=== PATIENT | female | born 1960 | race Caucasian/White ===

== ENCOUNTER 2016-11-16 17:51 | Emergency (ER) | payer BC, OTHER ==
--- NOTE | 2016-11-16 18:27 | ED ---
General Adult HPI - General Chief complaint: Head Injury Stated complaint: FALL, HEAD INJURY Time Seen by Provider: 11/16/16 18:00 Source: patient, family, RN notes reviewed Mode of arrival: wheelchair Limitations: physical limitation - History of Present Illness Initial comments: This is a 56-year-old female who was on some sort of 3 wheeled skateboard device. Patient fell backwards off of it landed on her buttocks and then smacked her head on the concrete. Patient states she was unconscious for a few seconds however has complete memory of today's events and is alert and oriented 3. Patient complains of occipital area headache and some mild neck pain. Patient denies any numbness weakness. Patient denies any blurred vision. Patient denies any back pain. Patient states her coccyx area is somewhat tender from landing so hard. Patient denies any chest pain difficult breathing shortest breath per patient denies any abdominal pain. Patient denies any sites of bleeding. Patient denies any extremity pain. - Related Data Home Medications Medication Instructions Recorded Confirmed Cyclobenzaprine [Flexeril] 10 mg PO BID PRN 11/16/16 11/16/16 Ibuprofen [Motrin] 800 mg PO BID PRN 11/16/16 11/16/16 PHENobarbital 60 mg PO BID 11/16/16 11/16/16 Phenytoin Sodium Extended 200 mg PO BID 11/16/16 11/16/16 [Dilantin] Zolpidem Tartrate [Ambien] 5 mg PO HS PRN 11/16/16 11/16/16 Allergies Allergy/AdvReac Type Severity Reaction Status Date / Time vancomycin Allergy Severe Anaphylaxis Verified 11/16/16 18:35 morphine AdvReac Severe Nausea & Verified 11/16/16 18:35 Vomiting Review of Systems ROS Statement: Those systems with pertinent positive or pertinent negative responses have been documented in the HPI. ROS Other: All systems not noted in ROS Statement are negative. Past Medical History Past Medical History: Seizure Disorder History of Any Multi-Drug Resistant Organisms: None Reported Date of last positivie culture/infection: YEARS AGO MDRO Source:: [facility] Past Surgical History: Orthopedic Surgery, Tubal Ligation Additional Past Surgical History / Comment(s): HAND, WRIST Past Psychological History: No Psychological Hx Reported Smoking Status: Never smoker Past Alcohol Use History: None Reported Past Drug Use History: None Reported General Exam - General Exam Comments Initial Comments: GENERAL: Patient is well-developed and well-nourished. Patient is nontoxic and well- hydrated and is in distress. ENT: Neck is soft and supple. No significant lymphadenopathy is noted. Oropharynx is clear. Moist mucous membranes. Patient has tenderness to both trapezius muscles. There is no spinous process tenderness. Patient's occipital region of the head is tender to palpation I see no abrasion or laceration. EYES: The sclera were anicteric and conjunctiva were pink and moist. Extraocular movements were intact and pupils were equal round and reactive to light. Eyelids were unremarkable. PULMONARY: Unlabored respirations. Good breath sounds bilaterally. No audible rales rhonchi or wheezing was noted. CARDIOVASCULAR: There is a regular rate and rhythm without any murmurs gallops or rubs. ABDOMEN: Soft and nontender with normal bowel sounds. No palpable organomegaly was noted. There is no palpable pulsatile mass. SKIN: Skin is clear with no lesions or rashes and otherwise unremarkable. NEUROLOGIC: Patient is alert and oriented x3. Cranial nerves II through XII are grossly intact. Motor and sensory are also intact. Normal speech, volume and content. Symmetrical smile. MUSCULOSKELETAL: Normal extremities with adequate strength and full range of motion. LYMPHATICS: No significant lymphadenopathy is noted PSYCHIATRIC: Normal psychiatric evaluation. Normal interpersonal interactions appears functionally intact in deals appropriately with others. No signs of depression. No signs of anxiety. Limitations: physical limitation Course Vital Signs 11/16/16 11/16/16 17:53 20:54 Temperature 98.4 F 97.9 F Pulse Rate 96 82 Respiratory 18 20 Rate Blood Pressure 168/80 187/81 O2 Sat by Pulse 99 100 Oximetry Medical Decision Making - Medical Decision Making I will back in the room to reevaluate the patient she was asymptomatic. She was alert and oriented 3. CT of the head and neck showed no acute abnormality. X-ray of the sacrum shows no acute normalities. Just prior to discharging the patient I reevaluated her she remained at her baseline according to family and she was alert and oriented 3. Disposition Clinical Impression: Concussion with loss of consciousness, Coccyx contusion Disposition: HOME SELF-CARE Instructions: Concussion (ED) Time of Disposition: 21:05
--- NOTE | 2016-11-16 19:22 | CT ---
EXAMINATION TYPE: CT brain cspine wo con DATE OF EXAM: 11/16/2016 7:10 PM COMPARISON: CT brain January 30, 2010 HISTORY: fall injury today with headache and neck pain CT DLP: 1620.7 mGycm. Automated Exposure Control for Dose Reduction was Utilized. TECHNIQUE: CT scan of the head and cervical spine are performed without contrast. FINDINGS: There is no acute intracranial hemorrhage, mass effect, or midline shift identified. The ventricles and sulci are within normal limits in size. The globes are intact and the visualized sin uses are clear. The calvarium is intact. Cervical spine is visualized in its entirety from C1 through upper thoracic levels and demonstrates s traightened alignment without evidence of acute fracture or dislocation. Prevertebral soft tissue ap pears within normal limits. The C1-C2 articulation is within normal limits on the coronal images. Vertebral body heights are maintained. There is mild spurring and disc space narrowing with vacuum di sc phenomenon at C5-C6 and C6-C7 levels. Review of axial images shows left-sided uncovertebral facet degenerative changes C2-C3 level. Thyroid gland is within normal limits. Lung apices are clear. IMPRESSION: 1. There is no acute fracture or dislocation evident in the cervical spine. 2. No acute intracranial hemorrhage, mass effect, or midline shift is seen.
--- NOTE | 2016-11-16 20:19 | XR ---
EXAMINATION TYPE: XR sacrum coccyx DATE OF EXAM: 11/16/2016 8:03 PM COMPARISON: NONE HISTORY: Fall injury with sacral and coccygeal pain. TECHNIQUE: 2 views of sacrum and coccyx are obtained. FINDINGS: There is no acute displaced sacral or coccygeal fracture identified. Sacroiliac joints are symmetric and maintained. Overlying pelvic phleboliths are seen. IMPRESSION: No acute displaced sacral or coccygeal fracture is seen.
[2016-11-16 20:56] VITALS: BP 187/81; PULSE 82; RESP 20; TEMP 97.9
== END 2016-11-16 21:31 | disposition home or self-care (01) ==
LOC: EC 17:51
DX: S06.0X9A Concussion with loss of consciousness of unspecified duration, initial encounter (principal); S30.0XXA Contusion of lower back and pelvis, initial encounter; G40.909 Epilepsy, unspecified, not intractable, without status epilepticus; Z79.899 Other long term (current) drug therapy; Z88.5 Allergy status to narcotic agent; Z88.1 Allergy status to other antibiotic agents; W01.10XA Fall on same level from slipping, tripping and stumbling with subsequent striking against unspecified object, initial encounter; Y93.51 Activity, roller skating (inline) and skateboarding
CPT/HCPCS: 70450; 72125; 72220; 99284

== ENCOUNTER 2018-03-26 20:00 | Emergency (ER) | payer OTHER ==
--- NOTE | 2018-03-26 21:29 | XR ---
EXAMINATION TYPE: XR Hip LT and AP Pelvis DATE OF EXAM: 03/26/2018 COMPARISON: NONE HISTORY: Pelvic and left hip pain after fall injury yesterday. TECHNIQUE: A single AP view of the pelvis is obtained. Two views of the left hip are obtained. FINDINGS: There is no acute fracture/dislocation evident in the pelvis. The sacroiliac joints appea r symmetric and unremarkable. [id number] axial joint space loss with mild acetabular spurring o f both hips is present. Left-sided pelvic phleboliths are noted. The symphysis is intact. Two views of left hip show no acute fracture or dislocation. No focal lytic or sclerotic lesion seen in the proximal left femur. The overlying soft tissue is unremarkable. IMPRESSION: There is no acute fracture or dislocation in the pelvis or left hip.
[2018-03-26] MEDS ORDERED: Acetaminophen-Codeine 300-30mg TAB PO STA (22:08)
--- NOTE | 2018-03-26 22:08 | ED ---
General Adult HPI - General Chief complaint: Extremity Injury, Lower Stated complaint: Hip pain Time Seen by Provider: 03/26/18 20:27 Source: patient, family Mode of arrival: ambulatory Limitations: no limitations - History of Present Illness Initial comments: Chief complaint and history of present illness this is a 58-year-old female here with her . Patient reports she [place] the [place]. Injuring her left hip left buttock area. No other injuries. No head or neck injury. No loss of consciousness. Patient reports she been walking without much difficulty since yesterday the later on today the discomfort increased. No complaint of numbness tingling or difficulty urinating. - Related Data Home Medications Medication Instructions Recorded Confirmed Cyclobenzaprine [Flexeril] 10 mg PO BID PRN 11/16/16 11/16/16 Ibuprofen [Motrin] 800 mg PO BID PRN 11/16/16 11/16/16 PHENobarbital 60 mg PO BID 11/16/16 11/16/16 Phenytoin Sodium Extended 200 mg PO BID 11/16/16 11/16/16 [Dilantin] Zolpidem Tartrate [Ambien] 5 mg PO HS PRN 11/16/16 11/16/16 Previous Rx's Medication Instructions Recorded Acetaminophen-Codeine 300-30mg 1 tab PO Q6H PRN #12 tablet 03/26/18 [Tylenol #3] Methocarbamol [Robaxin-750] 750 mg PO TID #9 tablet 03/26/18 Allergies Allergy/AdvReac Type Severity Reaction Status Date / Time vancomycin Allergy Severe Anaphylaxis Verified 03/26/18 20:08 morphine AdvReac Severe Nausea & Verified 03/26/18 20:08 Vomiting Review of Systems ROS Statement: Those systems with pertinent positive or pertinent negative responses have been documented in the HPI. Review of systems no other acute problems to complain of. Her past history includes having a seizure disorder since eighth grade still taking anti-seizure medications. She's had a tubal ligation, she's had orthopedic surgery on her hand and wrist. Family history significant for father recently diagnosed colon cancer. Patient denies smoking denies drinking. She reports ALLERGIES to morphine and vancomycin. ROS Other: All systems not noted in ROS Statement are negative. Past Medical History Past Medical History: Seizure Disorder History of Any Multi-Drug Resistant Organisms: None Reported Date of last positivie culture/infection: YEARS AGO MDRO Source:: [facility] Past Surgical History: Orthopedic Surgery, Tubal Ligation Additional Past Surgical History / Comment(s): HAND, WRIST Past Psychological History: No Psychological Hx Reported Smoking Status: Never smoker Past Alcohol Use History: None Reported Past Drug Use History: None Reported General Exam - General Exam Comments Initial Comments: Physical exam; vital signs temp 98.5 pulse 108 respiratory rate 20 pulse ox 94% room air blood pressure 150/86. Pertinent to the patient's visit examination finds the patient complaining of pain from the left buttock to the left hip area. Range of motion decreased secondary to pain. Neurovascular status was intact. No significant bruising appreciated. No complaint of numbness tingling or any difficulty urinating or bowel movements. Limitations: no limitations Course Vital Signs 03/26/18 03/26/18 20:02 21:42 Temperature 98.5 F Pulse Rate 108 H 84 Respiratory 20 18 Rate Blood Pressure 150/86 145/84 O2 Sat by Pulse 94 L 97 Oximetry Medical Decision Making - Medical Decision Making Gen. medical problem and medical decision making; this is a 58-year-old female here with her significant other. The patient reports that she stumbled and tripped while at the mall yesterday and landed on her left hip area. Since then the pain has become worse. She has ambulated since then. No other complaints to the rest the body. X-ray of the pelvis and left hip was done and reviewed by radiologist his findings are there is no acute fracture dislocation evident in the pelvis. The sacroiliac joints appear symmetric and unremarkable. Mild to moderate axial joint space loss with mild acetabular spurring of both hips is present. Left- sided pelvic phleboliths are noted. The symphysis intact. 2 views of the left hip shows no acute fracture dislocation. No focal lytic or sclerotic lesion is seen in the proximal left femur. The overlying soft tissues unremarkable. Impression; there is no acute fracture or dislocation in the pelvis or left hip. As read by Dr. braun The patient be placed on Robaxin 750 for muscle relaxation and 3 days of Tylenol 3 for pain. Disposition Clinical Impression: Contusion of left hip, initial encounter Disposition: HOME SELF-CARE Condition: Fair Instructions: Hip Pain (ED), Hip Contusion (ED) Prescriptions: Acetaminophen-Codeine 300-30mg [Tylenol #3] 1 tab PO Q6H PRN #12 tablet PRN Reason: Pain Methocarbamol [Robaxin-750] 750 mg PO TID #9 tablet Is patient prescribed a controlled substance at d/c from ED?: Yes When asked, does pt state using other controlled substances?: No If prescribed controlled substance>3 days was MAPS reviewed?: Prescribed <3 Days If Rx opioid, was Start Talking consent form obtained?: Yes Referrals: Alondra Bergeron MD [Primary Care Provider] - 1-2 days
[2018-03-26] MEDS ORDERED: METHOCARBAMOL 750 MG TAB PO PRN (22:09)
[2018-03-26 22:30] VITALS: BP 135/56; PULSE 75; RESP 20; TEMP 98.6
== END 2018-03-26 22:25 | disposition home or self-care (01) ==
LOC: EC 20:00
DX: S70.02XA Contusion of left hip, initial encounter (principal); G40.909 Epilepsy, unspecified, not intractable, without status epilepticus; Z79.899 Other long term (current) drug therapy; Z88.1 Allergy status to other antibiotic agents; Z88.5 Allergy status to narcotic agent; W01.0XXA Fall on same level from slipping, tripping and stumbling without subsequent striking against object, initial encounter; Y92.59 Other trade areas as the place of occurrence of the external cause
CPT/HCPCS: 73502; 99283

== ENCOUNTER 2020-10-14 17:05 | Emergency (ER) | payer OTHER ==
[2020-10-14 17:11] VITALS: RESP 18
[2020-10-14] MEDS ORDERED: ACETAMINOPHEN TAB 500 MG TAB PO STA (19:20)
[2020-10-14] MEDS ORDERED: IBUPROFEN 600 MG TAB PO STA (19:21)
[2020-10-14] MEDS ORDERED: SODIUM CHLORIDE 0.9% 1,000 ML IV ONE (19:22)
--- NOTE | 2020-10-14 19:24 | ED ---
General Adult HPI - General Source: patient, RN notes reviewed, old records reviewed Mode of arrival: wheelchair Limitations: no limitations <Curtis Britt - Last Filed: 10/14/20 21:04> <Ariel Manrique - Last Filed: 10/14/20 22:01> - General Chief complaint: Fever Stated complaint: fever/body aches/nausea Time Seen by Provider: 10/14/20 17:10 - History of Present Illness Initial comments: This is a 60-year-old female who presents emergency department stating that she's had significant exposure to cold. Patient also states she has high blood pressure. Patient comes in stating she's had body aches for 2 days now has a dry cough and is a some slight nausea but no vomiting. Patient denies any diarrhea. Patient denies loss of smell or taste. Patient states she has no chest pain or palpitations. Patient denies shortness of breath or difficulty breathing. Patient denies headache patient denies numbness weakness. Patient denies any recent injury or trauma. (Curtis Britt) - Related Data Home Medications Medication Instructions Recorded Confirmed Cyclobenzaprine [Flexeril] 10 mg PO BID PRN 11/16/16 11/16/16 Ibuprofen [Motrin] 800 mg PO BID PRN 11/16/16 11/16/16 PHENobarbital 60 mg PO BID 11/16/16 11/16/16 Phenytoin Sodium Extended 200 mg PO BID 11/16/16 11/16/16 [Dilantin] Zolpidem Tartrate [Ambien] 5 mg PO HS PRN 11/16/16 11/16/16 Previous Rx's Medication Instructions Recorded Acetaminophen-Codeine 300-30mg 1 tab PO Q6H PRN #12 tablet 03/26/18 [Tylenol #3] Methocarbamol [Robaxin-750] 750 mg PO TID #9 tablet 03/26/18 Allergies Allergy/AdvReac Type Severity Reaction Status Date / Time vancomycin Allergy Severe Anaphylaxis Verified 10/14/20 17:11 morphine AdvReac Severe Nausea & Verified 10/14/20 17:11 Vomiting Review of Systems ROS Other: All systems not noted in ROS Statement are negative. <Curtis Britt - Last Filed: 10/14/20 21:04> ROS Other: All systems not noted in ROS Statement are negative. <Ariel Manrique - Last Filed: 10/14/20 22:01> ROS Statement: Those systems with pertinent positive or pertinent negative responses have been documented in the HPI. Past Medical History Past Medical History: Seizure Disorder History of Any Multi-Drug Resistant Organisms: None Reported Date of last positivie culture/infection: YEARS AGO MDRO Source:: [facility] Past Surgical History: Orthopedic Surgery, Tubal Ligation Additional Past Surgical History / Comment(s): HAND, WRIST Past Psychological History: No Psychological Hx Reported Smoking Status: Never smoker Past Alcohol Use History: None Reported Past Drug Use History: None Reported <Curtis Britt - Last Filed: 10/14/20 21:04> General Exam Limitations: no limitations <Curtis Britt - Last Filed: 10/14/20 21:04> - General Exam Comments Initial Comments: GENERAL: Patient is well-developed and well-nourished. Patient is nontoxic and well- hydrated and is in mild distress. ENT: Neck is soft and supple. No significant lymphadenopathy is noted. Oropharynx is clear. Moist mucous membranes. Neck has full range of motion without e liciting any pain. EYES: The sclera were anicteric and conjunctiva were pink and moist. Extraocular movements were intact and pupils were equal round and reactive to light. Eyelids were unremarkable. PULMONARY: Unlabored respirations. Good breath sounds bilaterally. No audible rales rhonchi or wheezing was noted. CARDIOVASCULAR: There is a regular rate and rhythm without any murmurs gallops or rubs. ABDOMEN: Soft and nontender with normal bowel sounds. SKIN: Skin is clear with no lesions or rashes and otherwise unremarkable. NEUROLOGIC: Patient is alert and oriented x3. Cranial nerves II through XII are grossly intact. Motor and sensory are also intact. Normal speech, volume and content. Symmetrical smile. MUSCULOSKELETAL: Normal extremities with adequate strength and full range of motion. No lower extremity swelling or edema. No calf tenderness. LYMPHATICS: No significant lymphadenopathy is noted PSYCHIATRIC: Normal psychiatric evaluation. (Curtis Britt) Course Vital Signs 10/14/20 10/14/20 10/14/20 17:09 20:00 21:37 Temperature 98.0 F 98.1 F Pulse Rate 86 89 77 Respiratory 18 18 18 Rate Blood Pressure 184/93 154/91 155/80 O2 Sat by Pulse 98 98 98 Oximetry EKG Findings - EKG Comments: EKG Findings:: EKG: Normal sinus rhythm, rate of 84, OH interval 182, QRS duration 88, QTC 449, no ST segment elevation. <Ariel Manrique - Last Filed: 10/14/20 22:01> Medical Decision Making - Lab Data Result diagrams: 10/14/20 19:54 10/14/20 19:54 <Curtis Britt - Last Filed: 10/14/20 21:04> - Lab Data Result diagrams: 10/14/20 19:54 10/14/20 19:54 <Ariel Manrique - Last Filed: 10/14/20 22:01> - Medical Decision Making Chest x-ray shows no acute abnormality. Patient was feeling better after she received Motrin and Tylenol and some fluids. I ordered monoclonal antibodies for the patient. Patient continued to have a headache and some nausea psychiatric the patient droperidol. Patient understands that she is to return to the emergency department if there is any shortness of breath (Curtis Britt) - Lab Data Lab Results 10/14/20 10/14/20 10/14/20 Range/Units 19:54 19:54 19:54 WBC 4.9 (3.8-10.6) k/uL RBC 4.53 (3.80-5.40) m/uL Hgb 13.6 (11.4-16.0) gm/dL Hct 40.8 (34.0-46.0) % MCV 90.0 (80.0-100.0) fL MCH 30.1 (25.0-35.0) pg MCHC 33.5 (31.0-37.0) g/dL RDW 13.0 (11.5-15.5) % Plt Count 244 (150-450) k/uL MPV 6.3 Neutrophils % 68 % Lymphocytes % 14 % Monocytes % 14 % Eosinophils % 1 % Basophils % 1 % Neutrophils # 3.4 (1.3-7.7) k/uL Lymphocytes # 0.7 L (1.0-4.8) k/uL Monocytes # 0.7 (0-1.0) k/uL Eosinophils # 0.0 (0-0.7) k/uL Basophils # 0.0 (0-0.2) k/uL PT 10.6 (9.0-12.0) sec INR 1.0 (<1.2) APTT 23.8 (22.0-30.0) sec D-Dimer 0.36 (<0.60) mg/L FEU Sodium 138 (137-145) mmol/L Potassium 4.2 (3.5-5.1) mmol/L Chloride 108 H (98-107) mmol/L Carbon Dioxide 19 L (22-30) mmol/L Anion Gap 11 mmol/L BUN 17 (7-17) mg/dL Creatinine 0.57 (0.52-1.04) mg/dL Est GFR (CKD-EPI)AfAm >90 (>60 ml/min/1.73 sqM) Est GFR (CKD-EPI)NonAf >90 (>60 ml/min/1.73 sqM) Glucose 110 H (74-99) mg/dL Plasma Lactic Acid Quinn (0.7-2.0) mmol/L Calcium 9.3 (8.4-10.2) mg/dL Magnesium 1.9 (1.6-2.3) mg/dL Total Bilirubin 0.3 (0.2-1.3) mg/dL AST 38 H (14-36) U/L ALT 30 (4-34) U/L Alkaline Phosphatase 114 (38-126) U/L Lactate Dehydrogenase 348 (313-618) U/L C-Reactive Protein 7.3 (<10.0) mg/L Total Protein 7.7 (6.3-8.2) g/dL Albumin 4.5 (3.5-5.0) g/dL Coronavirus (PCR) (Not Detectd) 10/14/20 10/14/20 Range/Units 19:54 19:57 WBC (3.8-10.6) k/uL RBC (3.80-5.40) m/uL Hgb (11.4-16.0) gm/dL Hct (34.0-46.0) % MCV (80.0-100.0) fL MCH (25.0-35.0) pg MCHC (31.0-37.0) g/dL RDW (11.5-15.5) % Plt Count (150-450) k/uL MPV Neutrophils % % Lymphocytes % % Monocytes % % Eosinophils % % Basophils % % Neutrophils # (1.3-7.7) k/uL Lymphocytes # (1.0-4.8) k/uL Monocytes # (0-1.0) k/uL Eosinophils # (0-0.7) k/uL Basophils # (0-0.2) k/uL PT (9.0-12.0) sec INR (<1.2) APTT (22.0-30.0) sec D-Dimer (<0.60) mg/L FEU Sodium (137-145) mmol/L Potassium (3.5-5.1) mmol/L Chloride (98-107) mmol/L Carbon Dioxide (22-30) mmol/L Anion Gap mmol/L BUN (7-17) mg/dL Creatinine (0.52-1.04) mg/dL Est GFR (CKD-EPI)AfAm (>60 ml/min/1.73 sqM) Est GFR (CKD-EPI)NonAf (>60 ml/min/1.73 sqM) Glucose (74-99) mg/dL Plasma Lactic Acid Quinn 1.3 (0.7-2.0) mmol/L Calcium (8.4-10.2) mg/dL Magnesium (1.6-2.3) mg/dL Total Bilirubin (0.2-1.3) mg/dL AST (14-36) U/L ALT (4-34) U/L Alkaline Phosphatase (38-126) U/L Lactate Dehydrogenase (313-618) U/L C-Reactive Protein (<10.0) mg/L Total Protein (6.3-8.2) g/dL Albumin (3.5-5.0) g/dL Coronavirus (PCR) Detected A (Not Detectd) Disposition Is patient prescribed a controlled substance at d/c from ED?: No Time of Disposition: 21:05 <Curtis Britt - Last Filed: 10/14/20 21:04> <Ariel Manrique - Last Filed: 10/14/20 22:01> Clinical Impression: Pneumonia due to COVID-19 virus Disposition: HOME SELF-CARE Instructions (If sedation given, give patient instructions): Coronavirus Disease 2019 (COVID-19) Referrals: Alondra eBrgeron MD [Primary Care Provider] - 1-2 days
[2020-10-14 20:16] LABS: Basophils % (A) 1 %; Eosinophils % (A) 1 %; HCT 40.8 % (34.0-46.0); HGB 13.6 gm/dL (11.4-16.0); Lymphocytes # (A) 0.7 k/uL (1.0-4.8); Lymphocytes % (A) 14 %; MCH 30.1 pg (25.0-35.0); MCHC 33.5 g/dL (31.0-37.0); Mean Platelet Volume 6.3; Monocytes # (A) 0.7 k/uL (0-1.0); Monocytes % (A) 14 %; Neutrophils # (A) 3.4 k/uL (1.3-7.7); Neutrophils % (A) 68 %; Platelet Count 244 k/uL (150-450); RBC 4.53 m/uL (3.80-5.40); WBC 4.9 k/uL (3.8-10.6)
[2020-10-14 20:25] LABS: D-Dimer 0.36 mg/L FEU (<0.60); Partial Thromboplastin Time 23.8 sec (22.0-30.0); Prothrombin Time 10.6 sec (9.0-12.0)
[2020-10-14 20:26] LABS: ALT 30 U/L (4-34); AST 38 U/L (14-36); African American GFR (CKD) >90 (>60 ml/min/1.73 sqM); Albumin 4.5 g/dL (3.5-5.0); Alkaline Phosphatase 114 U/L (38-126); Anion Gap 11 mmol/L; Blood Urea Nitrogen 17 mg/dL (7-17); C Reactive Protein 7.3 mg/L (<10.0); Calcium 9.3 mg/dL (8.4-10.2); Carbon Dioxide 19 mmol/L (22-30); Chloride 108 mmol/L (98-107); Glucose 110 mg/dL (74-99); LDH 348 U/L (313-618); Magnesium 1.9 mg/dL (1.6-2.3); Non-African American GFR(CKD) >90 (>60 ml/min/1.73 sqM); Potassium 4.2 mmol/L (3.5-5.1); Sodium 138 mmol/L (137-145); Total Bilirubin 0.3 mg/dL (0.2-1.3); Total Protein 7.7 g/dL (6.3-8.2)
--- NOTE | 2020-10-14 21:26 | XR ---
EXAMINATION TYPE: XR chest 1V portable DATE OF EXAM: 10/14/2020 COMPARISON: Chest x-ray from 01/30/2010 HISTORY: Cough TECHNIQUE: Single frontal view of the chest is obtained. FINDINGS: There is no focal air space opacity, pleural effusion, or pneumothorax seen. The cardiac silhouette size is within normal limits. The osseous structures are intact. IMPRESSION: No acute process.
[2020-10-14 21:39] VITALS: TEMP 98.1
[2020-10-14] MEDS ORDERED: BAMLANIVIMAB 700 MG in SODIUM CHLORIDE 0.9% 50 ML IVPB ONE (22:00)
[2020-10-14 23:44] VITALS: BP 180/89; PULSE 79
[2020-10-15 06:01] LABS: Ferritin 85.9 ng/mL (10.0-291.0)
== END 2020-10-14 23:44 | disposition home or self-care (01) ==
LOC: EC 17:05
DX: U07.1 COVID-19 (principal); J12.82 Pneumonia due to coronavirus disease 2019; G43.909 Migraine, unspecified, not intractable, without status migrainosus; Z79.899 Other long term (current) drug therapy; Z88.1 Allergy status to other antibiotic agents; Z88.5 Allergy status to narcotic agent; Z98.51 Tubal ligation status
CPT/HCPCS: 36415; 93005; 85379; 80053; 82728; 83605; 83615; 83735; 85025; 85610; 85730; 86140; 87040; 84145; 87635; 71045; 99284; 96365; 96375; 96361 ×3; Q0239; J1790